=== PATIENT | female | born 1955 | race Caucasian/White ===

== ENCOUNTER 2024-06-16 05:31 | Observation (INO) ==
--- NOTE | 2024-05-07 10:47 | PAT Medication Instructions ---
Medication Instructions Date of Service May 07, 2024 Home Medications hydrochlorothiazide 25 mg tablet 25 mg PO QAM lisinopril 5 mg tablet 5 mg PO QAM cvkitzc-fyvngpnvx-gqcw tablet 3 tab PO DAILY multivitamin 0.5 tab PO DAILY DO NOT take the morning of surgery hydrochlorothiazide 25 mg tablet 25 mg PO QAM lisinopril 5 mg tablet 5 mg PO QAM vlusikl-vqxhuemua-qlzt tablet 3 tab PO DAILY multivitamin 0.5 tab PO DAILY MORNING OF SURGERY: NOTHING TO EAT OR DRINK AFTER MIDNIGHT Other Notes If you have any questions please call us at [phone] or [phone] or [phone] or [phone]
--- NOTE | 2024-05-22 11:19 | Anesthesiology Consultation ---
Date of Service May 22, 2024 Assessment & Plan (1) Encounter for pre-operative examination: - Infectious disease screening: Per assessment on 05/22/24- No known recent infectious disease contacts or current infectious disease symptoms. - Outpatient joint assessment: Pt currently scheduled for inpatient pathway. If surgeon requests review for outpatient joint pathway, patient is an acceptable candidate for outpatient joint program from anesthesia standpoint pending surgeon's office assessment that patient is motivated, has good support and completes [facility] Day Joint Program preop requirements. Chart Review Chart Review: Acceptable Risk for Surgery and Patient seen in Pre Admission Testing Teaching & Discussion Pre-Anesthesia Teaching/Discussion Notes: Instructed NPO after midnight before surgery,except medications with 15 cc of water. Medication instructions provided according to the PAT guidelines. History Surgery Operation Date: 06/16/24 12:00 Proposed Procedures p Left Anterior Total Hip Arthroplasty - Darrell Vega, Height/Weight Height: 5 ft 2 in Weight: 76.6 kg Allergies Allergy/AdvReac Type Severity Reaction Status Date / Time codeine Allergy Severe Nausea, Verified 05/22/24 11:26 dizziness benzonatate Allergy Unknown Unknown Verified 05/22/24 10:08 oxycodone Allergy Unknown Severe Verified 05/22/24 11:26 acid reflux, pain down arm, N/V alendronate sodium AdvReac Unknown "Didn't do Verified 05/22/24 10:08 [From Fosamax] well on it" ondansetron AdvReac Unknown "Made me Verified 05/22/24 10:08 more sick" Medications Home Medications Medication Instructions Recorded Confirmed Last Taken hydrochlorothiazide 25 mg tablet 25 mg PO QAM 09/08/23 05/19/24 Unknown lisinopril 5 mg tablet 5 mg PO QAM 09/08/23 05/19/24 Unknown vhwxyfq-irxbauytg-rvbf tablet 3 tab PO DAILY 05/06/24 05/19/24 Unknown multivitamin 0.5 tab PO DAILY 05/06/24 05/19/24 Unknown acetaminophen 650 mg 650 mg PO Q12H 05/19/24 05/19/24 Unknown tablet,extended release estradiol 0.01% (0.1 mg/gram) 1 appful vaginal 2XWK 05/19/24 05/19/24 Unknown vaginal cream ibuprofen 200 mg tablet 200 mg PO Q6H PRN Pain 05/19/24 05/19/24 Unknown varenicline tartrate 0.03 mg/spray 0.03 mg intranasal BID 05/19/24 05/19/24 Unknown metered nasal spray (Tyrvaya) Past Medical History Medical History Acid reflux Borderline high cholesterol Bulging lumbar disc Lumbar spine MRI 02/21/23 ([facility]) Compression fracture of body of thoracic vertebra Incidental finding on 02/21/23 lumbar spine MRI: "There is an old moderate inferior endplate compression fracture at T12 demonstrating 2 mm of retropulsion of the posterior inferior corner. However, no significant central canal narrowing" History of COVID-19 (01/2021) HTN (hypertension) Osteoarthritis Osteoporosis Exercise / Class Metabolic Activity II 4-5 Yardwork/Stairs/Walk up hill Past Surgical History Surgical History History of left cataract surgery History of right cataract surgery [place] teeth removed Past Anesthesia History No Hx of Anesthesia Complications and No Family Hx of Anesthesia Complications History of PONV No Hx of PONV and Hx of Motion Sickness (Situational) Social History Smoking Status: Never smoker Do You Dip or Chew Tobacco: No Hx Alcohol Use: No Hx Substance Use: No substance use type: does not use Review of Systems Patient denies chest pain, shortness of breath, dyspnea on exertion, fever, chills, cough, wheezing. Physical Exam Vital Signs BP 155/83 P 66 TEMP 97.8 SP02 97%RA RESP 16 Physical Full cervical extension range of motion. Full TMJ range of motion. TMD 3 finger breaths Mallampati Score II Dentition: intact, + caps/crowns (molars) Lungs: clear throughout to auscultation Cardiac: regular rate and rhythm, no murmurs noted Spine: normal Carotid arteries: negative bruit Extremities: no LE edema Lab Results Anesthesia Preop Results Results Anesthesia Widget: WBC 6.44 K/ul (4.8-10.8) 05/22/24 Hgb 12.1 g/dl (12.0-16.0) 05/22/24 Hct 36.1 % (37.0-47.0) L 05/22/24 Plt 273 K/uL (130-400) 05/22/24 Na 136 mmol/L (136-145) 05/22/24 K 4.2 mmol/L (3.5-5.1) 05/22/24 Cl 100 mmol/L (98-107) 05/22/24 CO2 30 mmol/L (21-32) 05/22/24 BUN 19 mg/dl (6-23) 05/22/24 Creat 0.86 mg/dl (0.6-1.2) 05/22/24 Glucose Level 97 mg/dl (70-99(Fasting)) 05/22/24 PT 10.7 Seconds (9.0-12.0) 05/22/24 PTT 28 Seconds (21-31) 05/22/24 INR 1.0 (0.9-1.1) 05/22/24 Blood Type A Positive 05/22/24 Antibody Screen NEGATIVE 05/22/24 Testing Electrocardiogram Date: 05/22/24 SB at 59bpm. "Otherwise normal ECG" Chest X-Ray Date: 05/22/24 FINDINGS: Heart size and pulmonary vasculature are normal. No effusion or consolidation. There is minimal scoliosis. IMPRESSION: No acute findings. Other Testing Lumbar spine MRI Date: 02/21/23 FINDINGS: For the purpose of the report the L5-S1 disc space will be located on axial image 11 of 15. There is an old moderate inferior endplate compression fracture at T12 demonstrating up to 30% loss of height centrally. There is 2 mm of retropulsion of the posterior inferior corner of the T12 vertebral body without significant central canal narrowing. Minimal superior endplate concavity along the right side of the L3 and L4 vertebral bodies. This is considered to be a chronic finding. No associated marrow edema to suggest an acute fracture within the lumbar spine. The visualized sacrum is intact. Paravertebral soft tissues are unremarkable. There is a vertebral body hemangioma within L1. Severe facet degenerative changes at L4-L5 and L5-S1. Moderate facet degenerative changes throughout the remaining lumbar spine. The conus terminates at the T12-L1 disc space level. Disc spaces are preserved. L1-L2: Small broad-based posterior disc bulge asymmetric to the left without significant central canal or right-sided neural foraminal narrowing. There is moderate left-sided neural foraminal narrowing due to the disc bulge. L2-L3: Small broad-based posterior disc bulge asymmetric to the left without significant central canal or right-sided neural foraminal narrowing. There is mild left-sided neural foraminal narrowing. This disc bulge abuts but does not displace the transiting left L3 nerve roots. L3-L4: Small broad-based posterior disc bulge without significant central canal narrowing. There is mild bilateral neural foraminal narrowing due to the disc bulge and facet hypertrophy. L4-L5: Small broad-based posterior disc bulge with ligamentum and facet hypertrophy. No significant central canal narrowing. There is mild bilateral neural foraminal narrowing. L5-S1: No significant central canal or neural foraminal narrowing. IMPRESSION: 1. There is an old moderate inferior endplate compression fracture at T12 demonstrating 2 mm of retropulsion of the posterior inferior corner. However, no significant central canal narrowing. 2. Minimal superior endplate concavity at L3 and L4 which is chronic. No acute fractures within the lumbar spine. 3. Degenerative changes as described above.
--- NOTE | 2024-06-12 07:32 | History & Physical Report ---
Date of Service June 12, 2024 Assessment & Plan (1) Osteoarthritis of left hip: We will proceed with a left anterior total of arthroplasty. Postoperatively, she will be started on aspirin for DVT prophylaxis and kept overnight in the hospital for postop medical management. She plans to use [facility] hysical therapy for discharge. History of Present Illness Chief Complaint: Osteoarthritis of the left hip. Primary Care Provider: Sher Bridges MD Renu is a pleasant 68-year-old female who has been dealing with chronic increasing left hip and groin pain. X-rays and clinical examination have been diagnostic for advanced arthritis of the left hip. After failed conservative treatment, she has elected to proceed with a left anterior total of arthroplasty.. Allergies Allergy/AdvReac Type Severity Reaction Status Date / Time codeine Allergy Severe Nausea, Verified 05/22/24 11:26 dizziness benzonatate Allergy Unknown Unknown Verified 05/22/24 10:08 oxycodone Allergy Unknown Severe Verified 05/22/24 11:26 acid reflux, pain down arm, N/V alendronate sodium AdvReac Unknown "Didn't do Verified 05/22/24 10:08 [From Fosamax] well on it" ondansetron AdvReac Unknown "Made me Verified 05/22/24 10:08 more sick" Home Medications Medication Instructions Recorded Confirmed Type hydrochlorothiazide 25 mg tablet 25 mg PO QAM 09/08/23 05/19/24 History lisinopril 5 mg tablet 5 mg PO QAM 09/08/23 05/19/24 History dvohogi-ftxnizmrm-njox tablet 3 tab PO DAILY 05/06/24 05/19/24 History multivitamin 0.5 tab PO DAILY 05/06/24 05/19/24 History acetaminophen 650 mg 650 mg PO Q12H 05/19/24 05/19/24 History tablet,extended release estradiol 0.01% (0.1 mg/gram) 1 appful vaginal 2XWK 05/19/24 05/19/24 History vaginal cream ibuprofen 200 mg tablet 200 mg PO Q6H PRN Pain 05/19/24 05/19/24 History varenicline tartrate 0.03 mg/spray 0.03 mg intranasal BID 05/19/24 05/19/24 History metered nasal spray (Tyrvaya) Past Med/Surg History Problem List (Updated 06/12/24 @ 07:32 by Darrell Vega DO) Osteoarthritis of left hip Encounter for pre-operative examination Medical History History of COVID-19 (01/2021) Bulging lumbar disc Lumbar spine MRI 02/21/23 ([facility]) Compression fracture of body of thoracic vertebra Incidental finding on 02/21/23 lumbar spine MRI: "There is an old moderate inferior endplate compression fracture at T12 demonstrating 2 mm of retropulsion of the posterior inferior corner. However, no significant central canal narrowing" Osteoarthritis Osteoporosis Acid reflux Borderline high cholesterol HTN (hypertension) Surgical History [place] teeth removed History of left cataract surgery History of right cataract surgery Social History Smoking Status: Never smoker Second Hand Exposure: No; Do You Dip or Chew Tobacco: No; Tobacco Cessation Education Requested by Patient: No Hx Alcohol Use: No Hx Substance Use: No Preferred Language: Romanian Communication Ability: Effective Stitchdown Toe Former Required: No Beliefs That Will Affect Care: None Current Living Situation: Spouse Feels Safe at Home: Yes Safety Concerns: Feels Safe At This Time Assistive Devices: Glasses Review of Systems All systems reviewed & are unremarkable except as noted in HPI & below. Physical Exam On physical examination of the left hip, she has decreased range of motion. She has pain with internal/external rotation. All of her pain is located in the groin. Constitutional WD/WN, vitals as above Eyes PERRL, conjunctivae normal, anicteric sclerae ENMT external ear and nose normal, oropharynx normal Neck trachea midline, no thyromegaly Respiratory normal respiratory effort Cardiovascular RRR, no murmur, no edema Gastrointestinal (Abdomen) normal bowel sounds, soft, nontender, no hepatosplenomegaly Psychiatric A+Ox3, euthymic affect Results & Data Results & Data Laboratory Results . Diagnostic Findings X-rays of the left hip show advanced osteoarthritis with joint space narrowing, osteophyte formation, and [id number] tubulation.. PG Care Time/CCT Total # of Minutes Spent Total Time Spent with Patient: Total time spent is greater than 50% in coordination of care (as documented) at patient's floor/unit and/or counseling patient: Coding Level of Care Code None Diagnoses Osteoarthritis of left hip M16.12
--- OUTSIDE RECORDS SUMMARY | 2024-06-16 05:37 | External Medical Summary | Summary of Care ---
Author Name Unknown Organization [facility] Address [address] [place] [address] Phone [phone] Care Team Providers Care Cashier Wrapper Name Role Phone hSer Bridges MD Primary Care Provider + Reason for Visit * Reason Comments pre-op exam Encounter Details Date Type Department Care Team (Late st Contact Info) Description 05/30/2024 10:00 AM EDT Office Visit General Internal Medicine [facility] [address] [facility] [address] Sher Bridges MD [address] [place] [address] Hip pain, left*; HTN, goal below 130/80 Allergies Active Allergy Reactions Criticality Noted Date Comments Codeine Nausea/vomiting 11/03/1999 Acid reflux, N/V Ondansetron 03/12/2020 Other reaction(s): dizziness Oxycodone 03/12/2020 Other reaction(s): nausea Benzonatate 08/26/2021 flushing documented as of this encounter (statuses as of 05/30/2024) Medications Multiple Vitamins-Big Arm als (MULTIVITAMIN ADULT) TABS Active Citracal Maximum Plus Oral Tablet Take by mouth. Act mandy Lutein-Zeaxant hin 25-5 MG Oral Capsule Take by mouth. Ac tive Lisinopril 5 MG Oral Tablet (Prinivil)Cindi cations:HTN, goal below 130/80 Take 1 Tablet by mouth in the morning. 90 Tablet 3 4 Active Alendronate Sodium 70 MG Oral Tablet (Fosamax) Take 1 Tablet by mouth once a week. 4 Tablet 12 4 Active Estradiol 0.1 MG/GM Vaginal Cream (Estrace) Apply pea sized amount (0.5 gm) vaginally at bedtime twice a week. 42.5 g 3 4 Active hydroCHLOROthi azide 25 MG Oral Tablet (Hydrodiuril)I ndications:HTN , goal below 130/80 TAKE ONE TABLET BY MOUTH EVERY MORNING 90 Tablet 1 5 Active Tyrvaya 0.03 MG/ACT Nasal Solution (Varenicline Tartrate) Administer into nostril. Active [place] 3 1200 MG Oral Capsule Take 2,400 mg by mouth. Takes 1x a day 05/31/19 25 Discontinu ed(Medicat ion List Clean Up) documented as of this encounter (statuses as of 05/30/2024) Active Problems Problem Noted Date Diagnosed Date Senile osteoporosis 12/05/2023 History of compression fracture of spine 024 Lumbar radiculopathy 03/13/2023 Hx of actinic keratosis 10/20/2022 Gastroesophageal reflux disease without esophagi tis 08/04/2021 HTN, goal below 130/80 01/12/2021 High risk for fracture due to osteoporosis by DE XA scan 08/19/2020 Hx of nonmelanoma skin cancer 08/22/2018 Overview (08/22/2018): BCC L upper arm 12/2017 documented as of this encounter (statuses as of 05/30/2024) Resolved Problems Problem Noted Date Diagnosed Date Resolved Date Essential hypertension with goal blood pressure less than 140/90 03/12/2020 01/12/2021 Closed fracture of right proximal humerus 03/12/2020 08/04/2021 Closed displaced fracture of greater tuberosity of right humerus 03/12/2020 08/04/2021 SENSORINEURAL HEARING LOSS, L>R 03/28/2010 04/03/2023 Chronic otitis externa 11/23/200903/12 Other specified forms of hearing loss 11/23/2009 03/12/2020 Primary snoring 11/23/2009 04/03/2023 Chronic rhinitis 11/23/2009 04/03/2023 Deviated nasal septum 11/23/20092020 Temporomandibular joint diso rders, unspecified 11/23/2009 03/12/2020 Overview (05/07/2024): ICD-10 Update of Inactive Term Subjective tinnitus 11/23/2009 04/03/19 24 Other psychological or physi siobhan stress, not elsewhere classified 11/23/2009 03/12/2020 documented as of this encounter (statuses as of 05/30/2024) Immunizations Name Administration Dates Next Due COVID-19 mRNA, LNP-s, No Pre serve, 2-Dose Series (Moderna) 04/13/2020,03/11/2020 COVID-19, mRNA, LNP-s, PF, B ooster, 100mcg/0.5mg (Moderna) 10/27/2022,06/03/2021,12/13/2020 COVID-19, mRNA, LNR-S, Bival ent, PF, 10mcg/0.2 ml (Moderna) 6m to 5 years 11/22/2021 Pneumococcal Conjugate Vacci ne, 20-valent ([id number]) 09/07/2022 Pneumococcal Polysaccharide PPV23 (Pneumovax) 07/13/2020 SARS-COV-2 (COVID-19) Vaccin e Unspecified 12/06/2023 Season Influenza, Quad, PF, Adjuvanted, 65+ Yrs, IM (FLUAD) 11/16/2020 Seasonal Influenza Virus Vac cine, Unspecified Formulation 12/14/2023,10/06/2022,11/16/2020,12/05,01/26/2000 Seasonal Influenza, High Dos e, Trivalent, PF, IM (Fluzone HD) 11/12/2021 Seasonal Influenza, PF, 6 M & above, IM , (FluLaval or Fluzone) 12/05/2018 TD - Tetanus/Diptheria (ADULT) 08/25/2020 TDAP (age 10 and older)(Boostrix) 08/25/2020 TDAP, Age 7 and older, IM (Adacel) 09/13/2009 Zoster Vaccine Recombinant (Shingrix) 12/19/2021 ,10/08/2021 documented as of this encounter Social History Tobacco Use Types Packs/Day Years Used Date Smoking Tobacco: Never Smokeless Tobacco: Never Alcohol Use Standard Drinks/Week Comments No 0 (1 standard drink = 0.6 oz pur e alcohol) PHQ-2 Answer Date Recorded PHQ Adult Total Score 0 10/25/2023 Hunger Vital Sign Answer Date Recorded Within the past 12 months, y ou worried that your food would run out before you got the money to buy more. Never true 04/22/19 23 Within the past 12 months, t he food you bought just didn't last and you didn't have money to get more. 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 Not on file Not on fi le Not on file documented as of this encounter Last Filed Vital Signs Vital Sign Reading Time Taken Comments Blood Pressure 124/86 05/30/2024 10:02 AM EDT Pulse 82 05/30/2024 10:02 AM EDT Temperature 37.2 °C (99 °F) 05/30/2024 10: 02 AM EDT Respiratory Rate - - Oxygen Saturation 98% 05/30/2024 10: 02 AM EDT Inhaled Oxygen Concentration - - Weight 75.7 kg (166 lb 14.4 oz) 025 10:02 AM EDT Height 160 cm (5' 3") 05/30/2024 10:02 AM EDT Body Mass Index 29.57 05/30/2024 10:02 AM EDT documented in this encounter Progress Notes * Sher Bridges MD - 05/30/2024 10:20 AM EDT Chief Complaint Patient presents with pre-op exam SUBJECTIVE: Renu Hernandez is a 68 year old female with PMH as below who presents for what was to be pre-op forleft hip replacement, but saw new surgeon (Gary) and is having left hip replacement 06/16/24 and he is not asking for pre-op. Had pre-op assessment at [facility], saw some labs flagged, asking if anemic.No cp, sob, giraldo. Occasional palpitations when gets stressed, chronic, not exertional, was able to exercise w/o palpitations, sob ,giraldo until early April when hip pain limited her, still does weights and adls w/o issue Patient Active Problem List Diagnosis Hx of nonmelanoma skin cancer High risk for fracture due to osteoporosis by DEXA scan HTN, goal below 130/80 Gastroesophageal reflux disease without esophagitis Hx of actinic keratosis History of compression fracture of spine Senile osteoporosis Lumbar radiculopathy Current Outpatient Medications Medication Sig Dispense Refill Multiple Vitamins-Minerals (MULTIVITAMIN ADULT) TABS Citracal Maximum Plus Oral Tablet Take by mouth. Lutein-Zeaxanthin 25-5 MG Oral Capsule Take by mouth. Lisinopril 5 MG Oral Tablet (Prinivil) Take 1 Tablet by mouth in the morning. 90 Tablet 3 Alendronate Sodium 70 MG Oral Tablet (Fosamax) Take 1 Tablet by mouth once a week. 4 Tablet 12 Estradiol 0.1 MG/GM Vaginal Cream (Estrace) Apply pea sized amount (0.5 gm) vaginally at bedtime twice a week. 42.5 g 3 hydroCHLOROthiazide 25 MG Oral Tablet (Hydrodiuril) TAKE ONE TABLET BY MOUTH EVERY MORNING 90 Tablet 1 Tyrvaya 0.03 MG/ACT Nasal Solution (Varenicline Tartrate) Administer into nostril. No current facility-administered medications for this visit. Review of patient's allergies indicates: Allergen Reactions Codeine Nausea/vomiting Acid reflux, N/V Ondansetron Other reaction(s): dizziness Oxycodone Other reaction(s): nausea Tessalon [Benzonatate] flushing Health Maintenance Due Topic Date Due Adult Wellness Visit Never done ROS: CONSTITUTIONAL: No change in weight, No weakness, and No fevers, sweats, or chills PULMONARY: No cough, sputum, or hemoptysis, No wheezing, No rales, No shortness of breath, and No recent change in breathing CARDIOVASCULAR: No chest pain, No shortness of breath, No dyspnea on exertion, No orthopnea, No paroxysmal nocturnal dyspnea, No edema, and No syncope ALL OTHER SYSTEMS NEGATIVE I reviewed social, PMH, PSH, and family history and updated where needed. Social History Socioeconomic History Marital status: Spouse name: Not on file Number of children: 2 Years of education: Not on file Highest education level: Not on file Occupational History Occupation: Housewife - retired - mechanic helper Tobacco Use Smoking status: Never Smokeless tobacco: Never Vaping Use Vaping status: Never Used Substance and Sexual Activity Alcohol use: No Drug use: Never Sexual activity: Yes Partners: Male Other Topics Concern Service Not Asked Blood Transfusions Not Asked Caffeine Concern Not Asked Occupational Exposure Not Asked Hobby Hazards Not Asked Sleep Concern Not Asked Stress Concern Not Asked Weight Concern Not Asked Special Diet Not Asked Back Care Not Asked Exercise Not Asked Bike Helmet Not Asked Seat Belt Not Asked Self-Exams No Comment: breast Social History Narrative Not on file Social Needs Financial Resource Strain: Not on file Food Insecurity: No Food Insecurity (04/21/2022) Hunger Vital Sign Worried About Running Out of Food in the Last Year: Never true Ran Out of Food in the Last Year: Never true Transportation Needs: Not on file Social Connections: Not on file Housing Stability: Not on file Past Medical History: Diagnosis Date Chronic otitis externa 11/23/2009 Chronic rhinitis Closed fracture of right proximal humerus 03/12/2020 Deviated nasal septum 11/23/2009 Gastroesophageal reflux disease without esophagitis 08/04/2021 High risk for fracture due to osteoporosis by DEXA scan 08/19/2020 Liver hemangioma Other specified forms of hearing loss 11/23/2009 Temporomandibular joint disorders, unspecified 11/23/2009 No past surgical history on file. Family History Problem Relation Name Age of Onset Endocrine Disorder Mother osteoporosis Hypertension Mother Neurological Disorder Father age 73 - ALS Arthritis Brother back arthritis, fracture Hypertension Brother age 50 Anxiety Disorder Brother Endocrine Disorder Grandmother (Maternal) osteoporosis Neurological Disorder Grandfather (Paternal) Amyotrophic Lateral sclerosis Other (Other) Other no breast/ovarian/colon cancer No Known Problems Daughter No Known Problems Son OBJECTIVE: PHYSICAL EXAM: BP 124/86 | Pulse 82 | Temp 99 °F (37.2 °C) | Ht 5' 3" (1.6 m) | Wt 166 lb 14.4 oz (75.7 kg) | LMP 08/15/2003 | SpO2 98% | BMI 29.57 kg/m² | BSA 1.83 m² General: alert, healthy, and no distress Head: Normocephalic, No masses, lesions, or abnormalities Eye Exam: conjunctiva are pink and non-injected, sclera clear Ears: External ears normal, Canals clear, TM's Normal Heart: regular rate & rhythm, no murmur, no gallops, PMI non-displaced, S-1 normal, and S-2 normal Lungs: normal respiratory rate and rhythm, lungs clear to auscultation Psych: normal affect, no flight of ideas or tangential thought, good eye contact, no pressured speech I reviewed last cbc, gfr, 05/22/24 EKG: Sinus bradycardia Otherwise normal ECG When compared with ECG of 24-Aug-2021 03:09, Premature ventricular complexes are no longer Present Cxr: IMPRESSION: No acute findings. 05/13/24 preop: Infectious disease screening: Per assessment on 05/22/24- No known recent infectious disease contacts or current infectious disease symptoms. - Outpatient joint assessment: Pt currently scheduled for inpatient pathway. If surgeon requests review for outpatient joint pathway, patient is an acceptable candidate for outpatient joint program from anesthesia standpoint pending surgeon's office assessment that patient is motivated, has good support and completes [facility] Day Joint Program preop requirements. I reviewed cbc, gfr ASSESSMENT: (M25.552) Hip pain, left (primary encounter diagnosis) (I10) HTN, goal below 130/80 PLAN: Hip pain, left (Primary) Await surgery for chronic pain Discussed labs, hgb normal - may repeat after surgery to trend HTN, goal below 130/80 Cont lisinopril, hctz Follow Up: Return if symptoms worsen or fail to improve and as scheduled.. Sher Bridges MD documented in this encounter Nursing Notes * Mere Heath CCMA - 05/30/2024 10:01 AM EDT Pt is here for pre op exam pt is doing well pt has questions about some lab work and the pre op also BP documented in this encounter Plan of Treatment Upcoming Encounters Date Type Department Care Team (Late st Contact Info) Description 07/16/2024 10:20 AM EDT Office Visit General Internal Medicine [facility] [address] [facility] [place] [address] Sher Bridges MD [address] [facility] [place] [address] 07/18/2024 1:30 PM EDT Office Visit Dermatology [facility] [address] [facility] [place] [address] Sher Berrios MD [address] [facility] [place] [address] 12/05/2024 10:40 AM EDT Office Visit Rheumatology [facility] [address] [place] [phone] Darrell Jones MD [address] [place] [id number] Health Maintenance Due Date Last Done Comments Colonoscopy 06/21/1999 Sigmoidoscopy 06/21/1999 Fecal Occult Blood Test 11/15/2001 11/15/2000 Adult Wellness Visit 2020 COVID-19 Vaccine ( season) 2024 12/06/2023, 10/27/2022, 11/22/2021, Additional history exists Mammogram 06/17/2024 06/18/2023, 08/05, 08/18/2020, Additional history exists GFR 10/05/2024 10/06/2023, 0406/2023, 09/04/2022, Additional history exists Depression Screening 10/24/2024 10/25/2023 DXA Scan 08/13/2025 08/14/2023, 08/05, 11/03/2008, Additional history exists Albumin/Creatinine Ratio 09/04/2025 09/04/2022, 07/06 Diabetes Screening 10/05/2026 10/06/2023, 0 05/11/2023, 09/04/2022, Additional history exists Cologuard 12/04/2026 12/05/2023, 11/06, 11/28/2023, Additional history exists Colorectal Cancer Screening 12/04/2026 Lipid Panel 10/05/2028 10/06/2023, 08/07, 08/05/2021, Additional history exists DTap/Tdap Vaccines (4 - Td or Tdap) 08/25/2030 08/25/2020, 08/25/2020, 09/13/2009 Zoster Vaccines Completed 12/19/2021, 10/08/2021 Pneumococcal Vaccine: 50+ Years Completed 09/07/2022, 07/13/2020 VITAMIN D LEVEL ONCE IN A LIFETIME-USE SMARTSET# [id number] Completed 10/06/2023, 01/14/2021, 09/06/2020, Additional history exists Influenza Vaccine (FLU shot) Completed 09/2023, 10/06/2022, 11/12/2021, Additional history exists HPV (Gardasil) Vaccine Aged Out No lo nger eligible based on patient's age to complete this topic Hepatitis B Vaccine Aged Out No longe r eligible based on patient's age to complete this topic MENINGOCOCCAL (MENACTRA/MENVEO) Aged Out No longer eligible based on patient's age to complete this topic Meningitis B Vaccine (Bexsero/Trumemba) Aged Out No longer eligible based on patient's age to complete this topic documented as of this encounter Medical Devices Not on filedocumented as of this encounter Visit Diagnoses Diagnosis Hip pain, left- Primary Pain in joint, pelvic region and thigh HTN, goal below 130/80 Unspecified essential hypertension documented in this encounter Care Teams Cashier Wrapper Relationship Specialty Start Date End Date Sher Bridges MD [address] [place] [address] PCP - General Internal Medicine 03/12/20 documented as of this encounter
[2024-06-16] MEDS: LR 500ML BOLUS, THEN 15ML/HR IV SCH (06:05)
[2024-06-16] MEDS: ACETAMINOPHEN 500 MG TAB PO SCH ×2 (06:06→14:37)
[2024-06-16] MEDS: FAMOTIDINE 20 MG TAB PO SCH (06:07)
[2024-06-16] MEDS: GABAPENTIN 300 MG CAP PO SCH (06:07)
[2024-06-16] MEDS ORDERED: MIDAZOLAM HCL 1 MG/ML 2ML VIAL ONE ×2 (06:11→06:34)
[2024-06-16] MEDS ORDERED: fentaNYL citrate PF 100 MCG/2 ML VIAL ONE (06:11)
[2024-06-16] MEDS ORDERED: BUPIVACAINE 0.5 % 5 MG/1 ML PF 10ML VIAL ONE (06:25)
[2024-06-16] MEDS: dexAMETHasone**PF** 10 MG/ML VIAL IV SCH (06:31)
[2024-06-16] MEDS ORDERED: ATROPINE SULFATE 0.1 MG/ML 10ML SYR IV PRN (06:36)
[2024-06-16] MEDS ORDERED: ePHEDrine sulfate 50 MG/ML AMP IV PRN (06:36)
[2024-06-16] MEDS ORDERED: ONDANSETRON INJ 2 MG/ML 2 ML VIAL IV PRN ×2 (06:36→09:56)
[2024-06-16] MEDS ORDERED: fentaNYL citrate PF 100 MCG/2 ML VIAL IV PRN (06:36)
[2024-06-16] MEDS ORDERED: PROPOFOL IV EMULSION 10 MG/ML 20 ML VIAL IV ONE (06:39)
--- NOTE | 2024-06-16 06:40 | History & Physical Bridge Note ---
Date of Service June 16, 2024 History & Physical Bridge Note I have examined the patient, reviewed the History & Physical and in the interval since the performance of the History & Physical I have noted the following changes of clinical significance: no changes noted
[2024-06-16] MEDS: TRANEXAMIC ACID 1,000 MG **IV Pre-op IV SCH (06:45)
[2024-06-16] MEDS: ceFAZolin 2000MG 2,000 MG/15 ML SYR IV SCH (06:58)
[2024-06-16] MEDS ORDERED: ePHEDrine sulfate 50 MG/5 ML SYR ONE (07:24)
[2024-06-16] MEDS: ROPIV 0.5% 246mg, Ketorolac 30mg, EPINEPHrine 0.5mg in NSS INFIL SCH (07:32)
[2024-06-16] MEDS: ORTHO JOINT ANESTHETIC ONE (07:33)
[2024-06-16] MEDS: TRANEXAMIC ACID 1,000 MG **IV Intra-op IV SCH (08:00)
--- NOTE | 2024-06-16 08:05 | Operative Report ---
PG Post Operative Report Pre & Post Diagnosis Operation Date: 06/16/24 07:00 Pre-Op Diagnosis: Left Hip Degenerative Joint Disease Post-Op Diagnosis: Left Hip Degenerative Joint Disease I identified the patient and participated in the time-out.: Yes Procedure Operation Date: 06/16/24 07:00 Actual Procedures p Left Anterior Total Hip Arthroplasty, Uncemented(Left) - Darrell Vega DO Surgeon Darrell Vega DO Trust Mail Clerk Milan Henriquez PA-C Estimated Blood Loss 150 Findings Consistent with Post-Op Diagnosis Specimens Left femoral head Description of Procedure Implants used I used a ZimmerBiomet total hip arthroplasty system with a size 3 standard offset Z1 stem, a 46 mm G7 cup with a 25mm screw, an E1 polyethylene liner, a 32 mm ceramic head with a +7 neck. Renu arrived at the hospital for the above procedure. She was seen in the preoperative holding area and the operative extremity was identified and signed. She was given a spinal anesthetic, a preoperative antibiotic, and TXA. She was then taken back to the operating room and laid on the table in the supine position. She was given basic sedation. The operative leg was secured to a Puristst leg positioner. The hip was then prepped and draped in sterile fashion. A timeout was done and the patient and the operative extremity was properly identified. An anterior approach was used. Dissection was taken down through the fascia and the tensor muscle belly was retracted laterally and the rectus was retracted medially. The circumflex vessels were identified and ligated. The capsule was then incised and tagged for later repair. The femoral neck was then cut and the femoral head was removed. The acetabulum was exposed. Time was spent doing a complete circumferential labral release. Sequential reaming of the acetabulum up to a size 45 reamer was done. Final reamings were done under fluoroscopy to ensure appropriate version. A Biomet 46 mm G7 cup was then impacted into place. A single 25 mm screw was placed. The E1 polyethylene liner was then snapped into place. Surrounding soft tissues were then injected with 100 cc of an orth opedic pain control cocktail. The proximal femur was then exposed. Sequential broaching up to a size 3 broach was done. Off that broach a size 32 head with a +7 neck was trialed. The hip was reduced and fluoroscopic images showed anatomic alignment of the implants in acceptable length. The broach was removed. The final size 3 standard offset Z1 stem was then impacted into place. A ceramic 32 mm head with a +7 neck was then impacted onto the stem and the hip was reduced. Final fluoroscopic images showed anatomic alignment of the hip. The capsule was then closed with #1 Vicryl suture. A dilute betadyne lavage was then done for 3 minutes. The joint was then irrigated with normal saline solution. The fascia was closed with #1 PDS suture. Skin was closed with 2-0 Vicryl, uzma, and a Silverlon dressing. She was then transferred to a hospital bed and taken to the post anesthesia care unit in stable condition. She tolerated the procedure well. Milan Henriquez PA-C, was present for the entire procedure. He was critical for patient positioning, prepping, draping, retraction exposure, wound closure and application of sterile dressing. I attest to the content of the Intraoperative Record and any orders documented therein. Any exceptions are noted below.
--- NOTE | 2024-06-16 08:58 | XRay Report ---
XR hip 1V LT w pelvis CLINICAL HISTORY: IN PACU - Post Surgical COMPARISON: 03/18/2024 FINDINGS: Left hip osteosynthesis shows no hardware complication. There is expected soft tissue gas. Skin uzma are present. IMPRESSION: Unremarkable postoperative exam. ACT 112: Negative or not required by law. Electronically signed by: Ted Burrell M.D. 06/16/2024 8:56 AM
--- NOTE | 2024-06-16 09:00 | Fluoroscopy Report ---
FL hip LT 1V CLINICAL HISTORY: LEFT ANTERIOR MERY COMPARISON STUDY: 03/18/2024 FLUOROSCOPY TIME: 15 seconds FLUOROSCOPY IMAGES: 2 EXPOSURE DOSE: 1.4 mGy FINDINGS: Fluoroscopy was provided for left hip prosthesis. IMPRESSION: Intraoperative fluoroscopy. ACT 112: Negative or not required by law. Electronically signed by: Ted Burrell M.D. 06/16/2024 8:59 AM
[2024-06-16] MEDS ORDERED: MAGNESIUM HYDROXIDE SUSP 30 ML UDC PO PRN (09:56)
[2024-06-16] MEDS ORDERED: bisacodyL 10 MG SUPP PR PRN (09:56)
[2024-06-16] MEDS ORDERED: HYDROmorphone INJ 0.5 MG/0.5 ML SYR IV PRN (09:56)
[2024-06-16] MEDS ORDERED: NALOXONE HCL 0.4 MG/1 ML VIAL/CARP IV PRN (09:56)
--- NOTE | 2024-06-16 11:14 | Anesthesiology Progress Note ---
Date of Service June 16, 2024 Anesthesia Post Procedure Vital Signs Vital Signs: Temp Pulse Pulse Resp BP Pulse Ox O2 Del Method 06/16/24 10:53 78 16 125/78 98 Room Air 06/16/24 10:20 97.5 F L 62 16 115/71 98 Room Air 06/16/24 09:52 97.5 F L 65 18 125/73 100 Room Air 06/16/24 09:35 97.3 F L 79 20 113/63 99 Room Air 06/16/24 09:20 60 18 129/80 97 Room Air 06/16/24 09:05 97.2 F L 69 19 126/74 97 Room Air 06/16/24 08:55 77 20 117/72 95 Room Air 06/16/24 08:45 72 15 116/65 95 Room Air 06/16/24 08:35 73 18 127/65 100 Oxymask 06/16/24 08:28 97.0 F L 80 16 111/71 100 Oxymask 06/16/24 05:44 98.2 F 72 18 168/87 H 98 Room Air O2 Flow Rate 06/16/24 10:53 06/16/24 10:20 06/16/24 09:52 06/16/24 09:35 06/16/24 09:20 06/16/24 09:05 06/16/24 08:55 06/16/24 08:45 06/16/24 08:35 9 06/16/24 08:28 9 06/16/24 05:44 Transfer of Care Handoff Completed per policy Notes Mental Status: alert / awake / arousable and participated in evaluation Patient Amnestic to Procedure: Yes Nausea / Vomiting: adequately controlled Pain: adequately controlled Airway Patency, RR, SpO2: stable & adequate BP & HR: stable & adequate Hydration State: stable & adequate Neuraxial Anesthesia: was administered and sensory block is resolving Anesthetic Complications: no major complications apparent and Pt Satisfied with anesthetic care
[2024-06-16] MEDS: LR 60ML/HR IV SCH (11:27)
[2024-06-16] MEDS: PROMETHAZINE HCL INJ 25 MG/ML 1 ML VIAL ONE (11:28)
[2024-06-16] MEDS: hydroCHLOROthiazide 25 MG TAB PO SCH (11:29)
[2024-06-16] MEDS: MULTIVITAMIN TAB PO SCH (11:29)
[2024-06-16] MEDS: ASPIRIN 81 MG ECTAB PO SCH (11:29)
[2024-06-16] MEDS: lisinopril 5 MG TAB PO SCH (11:30)
[2024-06-16] MEDS: KETOROLAC TROMETHAMINE 15 MG/ML VIAL IV SCH (11:32)
[2024-06-16] MEDS: SODIUM CHLORIDE 0.9% 1,000 ML IV SCH (11:32)
[2024-06-16] MEDS: DOCUSATE SODIUM 100 MG CAP PO SCH (11:32)
[2024-06-16] MEDS: ceFAZolin 1000MG 1,000 MG/7.5 ML SYR IV SCH (14:38)
[2024-06-16] MEDS: SENNA 8.6 MG TAB PO SCH (20:06)
[2024-06-16] MEDS: traMADol HCL 50 MG TABLET PO PRN (23:29)
[2024-06-17] MEDS: METOCLOPRAMIDE HCL INJ 5 MG/ML 2 ML VIAL IV PRN (07:53)
[2024-06-17] MEDS: dexAMETHasone 4 MG TAB PO SCH (10:53)
--- NOTE | 2024-06-17 12:58 | Orthopedic Progress Note ---
Date of Service June 17, 2024 Assessment & Plan (1) Status post left hip replacement: Assessment: Status post left anterior total hip arthroplasty. Plan: Overall, other than nausea she is doing quite well today with her left hip. She will work with physical therapy later this morning to work on ambulation range of motion exercises once she is feeling a little bit better from her nauseous is due to experiencing this morning. She was started on aspirin for DVT prophylaxis. She can be discharged home later this morning pending formal physical therapy evaluation recommendation. This will also depend on if she is feeling better after the nausea and vomiting she has been experiencing this morning. Discharge medications and instructions were discussed with her with clear understanding. She will follow-up with orthopedics in 2 to 3 weeks postdischarge for continued postoperative management or sooner if needed. Subjective . Renu was seen this morning resting comfortably with no acute distress. She unfortunately has been nauseous all morning. She notes that it started around 7:00 this morning. She notes that she has been up and out of bed with no significant issues yesterday but has yet to be out this morning. She is yet to work physical therapy this morning. She denies any concerns with her surgical incision site. She denies any active bleeding, discharge, or signs infection. She denies any other concerns today. Review of Systems All systems reviewed & are unremarkable except as noted in HPI & below. Physical Exam . On physical examination of the left hip, the dressing is in place, clean, dry, intact no signs of active bleeding, discharge, or signs of infection. Her leg is out in full extension. Limited range of motion strength secondary to postoperative stiffness and soreness. Calf soft nontender to palpation. Negative Homans' sign. Intact plantarflexion dorsiflexion of left ankle. +2 DP and PT pulse. Less than 2-second capillary refill. Normal sensation. Neurovascular intact. Results & Data Results & Data Laboratory Results . Diagnostic Findings . Hip X-Ray 06/16/24 00:00 FL hip LT 1V CLINICAL HISTORY: LEFT ANTERIOR MERY COMPARISON STUDY: 03/18/2024 FLUOROSCOPY TIME: 15 seconds FLUOROSCOPY IMAGES: 2 EXPOSURE DOSE: 1.4 mGy FINDINGS: Fluoroscopy was provided for left hip prosthesis. IMPRESSION: Intraoperative fluoroscopy. ACT 112: Negative or not required by law. Electronically signed by: Ted Burrell M.D. 06/16/2024 8:59 AM Hip/Pelvis X-Ray 06/16/24 08:30 XR hip 1V LT w pelvis CLINICAL HISTORY: IN PACU - Post Surgical COMPARISON: 03/18/2024 FINDINGS: Left hip osteosynthesis shows no hardware complication. There is expected soft tissue gas. Skin uzma are present. IMPRESSION: Unremarkable postoperative exam. ACT 112: Negative or not required by law. Electronically signed by: Ted Burrell M.D. 06/16/2024 8:56 AM PG Care Time/CCT Total # of Minutes Spent Total Time Spent with Patient: Total time spent is greater than 50% in coordination of care (as documented) at patient's floor/unit and/or counseling patient: Coding Level of Care Code 19336 Post Operative Follow-Up Diagnoses Status post left hip replacement Z96.642
[2024-06-17] MEDS: PROMETHAZINE HCL 25 MG TAB PO ONE (13:29)
[2024-06-17] MEDS: SODIUM CHLORIDE 0.9% 1,000 ML IV ONE (15:13)
[2024-06-17 15:39] LABS: Hematocrit (blood only) 31.2 % (37.0-47.0); Hemoglobin 10.6 g/dl (12.0-16.0)
--- NOTE | 2024-06-18 10:47 | Orthopedic Progress Note ---
Date of Service June 18, 2024 Assessment & Plan (1) Status post left hip replacement: (2) Aftercare following left hip joint replacement surgery: Plan 68-year-old woman POD# 2 s/p left anterior total hip replacement, doing well overall. Pain is well-controlled. She is neurologically intact and no longer having any nausea, dizziness, or headache. Plan: 1. DVT prophylaxis w/ TEDs, SCDs, ASA 81 mg BID. 2. Continue PT/OT as tolerated. WBAT on L LE. Left anterior approach total hip precautions/protocol. 3. Pain control doing well with current pain regimen. 4. Maintain Silverlon dressing for 7 days postop. 5. Disposition - Okay for discharge from orthopedic standpoint. Home today, with home health PT to start Sunday. 6. F/u outpatient with Dr. Vega's team 2 weeks postop, as scheduled, for first post-op visit. Subjective Patient is POD# 2 s/p left anterior total hip arthroplasty by Dr. Malik on 06/16/2024. Patient says her pain is well-controlled this morning. Denies CP, SOB, L LE paresthesia. Particularly, she is no longer having any nausea or vomiting symptoms. Additionally, she feels that she has not had any dizziness or headache since yesterday. She has home health PT arranged to come to the house for therapy, which was supposed to start today, but since she needed to stay an additional night, this will begin on Sunday. Patient says that she will be ready to go home later today. Review of Systems All systems reviewed & are unremarkable except as noted in HPI & below. Physical Exam GENERAL: AA&Ox3, NAD. Pleasant, affect is calm. Lying in bed and appears comfortable. RESPIRATORY: Normal respiratory effort with no signs of distress. CHEST/AXILLA: Chest movement symmetrical. No deformities noted. CARDIOVASCULAR: No edema noted. SKIN: [place], warm and dry. MS/EXTREMITY: Hip Silverlon dressing c/d/i. SURY hose donned. [Thigh is soft, supple. Leg lengths are equal. + ankle dorsi/plantarflexion. NVI distally. Calf soft/NT. PT/DP pulses intact, 2+. Results & Data Results & Data Laboratory Results . Laboratory Results - last 24 hr 06/17/24 15:22 Hgb 10.6 L Hct 31.2 L Diagnostic Findings . PG Care Time/CCT Total # of Minutes Spent Total Time Spent with Patient: Total time spent is greater than 50% in coordination of care (as documented) at patient's floor/unit and/or counseling patient: [place]oding [place] [address] Post Operative Follow-Up Patient Type Established History Problem Focused Exam Problem Focused Medical Decision Making Straight Forward Diagnoses Status post left hip replacement Z96.642 Aftercare following left hip joint replacement surgery Z47.1; Z96.642
--- NOTE | 2024-06-18 11:46 | Discharge Summary ---
Date of Service June 18, 2024 Admission HPI (Per Admitting) Renu is a pleasant 68-year-old female who has been dealing with chronic increasing left hip and groin pain. X-rays and clinical examination have been diagnostic for advanced arthritis of the left hip. After failed conservative treatment, she has elected to proceed with a left anterior total of arthroplasty. We will proceed with a left anterior total of arthroplasty. Postoperatively, she will be started on aspirin for DVT prophylaxis and kept overnight in the hospital for postop medical management. She plans to use [facility] physical therapy for discharge. Admission Exam (Per Admitting) On physical examination of the left hip, she has decreased range of motion. She has pain with internal/external rotation. All of her pain is located in the groin. Constitutional WD/WN, vitals as above Eyes PERRL, conjunctivae normal, anicteric sclerae ENMT external ear and nose normal, oropharynx normal Neck trachea midline, no thyromegaly Respiratory normal respiratory effort Cardiovascular RRR, no murmur, no edema Gastrointestinal (Abdomen) normal bowel sounds, soft, nontender, no hepatosplenomegaly Psychiatric A+Ox3, euthymic affect Principal Diagnosis Same as "Discharge Diagnosis" noted below under Discharge Instructions. Discharge Exam GENERAL: AA&Ox3, NAD. Pleasant, affect is calm. Lying in bed and appears comfortable. RESPIRATORY: Normal respiratory effort with no signs of distress. CHEST/AXILLA: Chest movement symmetrical. No deformities noted. CARDIOVASCULAR: No edema noted. SKIN: [place], warm and dry. MS/EXTREMITY: Hip Silverlon dressing c/d/i. SURY hose donned. Thigh is soft, supple. Leg lengths are equal. + ankle dorsi/plantarflexion. NVI distally. Calf soft/NT. PT/DP pulses intact, 2+. Discharge Data Procedures Performed Operation Date: 06/16/24 07:00 Actual Procedures p Left Anterior Total Hip Arthroplasty, Uncemented(Left) - Darrell Vega DO Ordered Studies 06/16/24 FL hip LT 1V Routine Hospital Course (1) Status post left hip replacement: (2) Aftercare following left hip joint replacement surgery: Plan On June 16, 2024 Renu arrived at [facility] operating room and underwent a left anterior total hip replacement without complications. Patient had spinal anesthetia and monitored conscious sedation for the procedure. Postoperatively, patient was transferred to the general orthopedic floor in stable condition and eventually started onto aspirin 81 mg twice daily for DVT prophylaxis as appropriate. Patient's hospital course was uneventful. On postoperative day #1, patient's vital signs were stable and pain was well- controlled. Patient did unfortunately experience some significant nausea, headache, dizziness the day after surgery, so she did need to stay an additional night since she was unable to work with therapy to get cleared to go home. However, patient was eventually able to participate well with physical therapy on POD #2, safely performing the necessary ambulation and range of motion exercises and properly demonstrating ADL tasks. Patient was then discharged home in stable condition, with [facility] PT services to begin. Patient will follow-up with orthopedics in 2 to 3 weeks for postoperative care. PG Care Time/CCT Total # of Minutes Spent Total Time Spent with Patient: Total time spent is greater than 50% in coordination of care (as documented) at patient's floor/unit and/or counseling patient: Discharge Plan Discharge Items Patient Disposition: Home - Home Health Services Reason For Visit: Left Hip Degenerative Joint Disease Discharge Diagnosis: Same Activity: Per Instructions section Non-emergency contact: Surgeon Call non-emergency contact if: your temperature is above 101.5, your wound has increased redness, your wound has increased drainage and your wound pain has increased Follow-up/Referrals: Sher Bridges MD [Primary Care Provider] - Abel Henriquez PA-C [Physician Yard Switcher] - (07/01/24 @ 09:30) Diet: Regular Addtl Attending Provider Instructions: Activity and Therapy Recommendations: * If you are using [facility] then therapy will be provided at your home until they feel you have accomplished all of your goals. * If you are using [facility] then Physical Therapy will be provided until they feel you are ready to start Outpatient Physical Therapy. * If you are not using home therapy then Outpatient Physical Therapy should start about 3-5 days from your day of surgery. Therapy will last about 6-10 weeks * You were shown a series of exercises in the hospital. Do these exercises three times each day including the exercises you were shown in physical therapy. * Get up and walk several times each day.~ For the first four weeks, try not to stand or walk for more than one hour at a time. If you do stand or walk for more than one hour, you will not hurt anything, but your leg will likely swell.~~ * As you feel comfortable, you may change from the walker or crutches to a cane and~then to independent walking. Medications: * Narcotic You will likely be sent home from the hospital with a prescription for the narcotic pain medication that worked best throughout your stay. * Cefadroxil -take the antibiotic twice a day for 10 days to help prevent infection. * Aspirin Most patients will be required to take Aspirin 81mg twice a day for 6 weeks after surgery. This is obtained [id number] and a prescription is not necessary. * Other medications may be prescribed for specific circumstances. If you have any questions, please call the office at . * Resume previous home medications unless otherwise instructed TEDs/Elastic Stockings: The white elastic stockings help limit swelling and prevent blood clots from forming in your legs. The more you wear them, the more they work. Wear them for 2 weeks. Dressing Care: Leave the Silverlon dressing in place for 7 days. After 7 days you may remove the dressing. If the incision is not draining then you may leave the uzma open to air. If there is a little bit of drainage or if the uzma are getting stuck on your clothing then cover the incision with a dry dressing. The uzma will be removed at your 2 week follow-up appointment. Showering: You may shower with the Silverlon dressing in place. Do not let the shower spray hit the dressing directly. Pat the Silverlon dressing dry. If the dressing becomes wet underneath, then simply remove the dressing. Keep the incision dry until you are 7 days out from the day of surgery. After 7 days you may remove the Silverlon dressing and shower with the uzma exposed. Let soapy water run over the uzma and pat them dry. Do not scrub or soak the incision. Diet: You may resume your previous diet. Things To Watch For: * Drainage from the incision site that occurs more than one week after your surgery. * Increased redness at the incision site. * Fever above 102 degrees Fahrenheit. * Unusual chest pain or shortness of breath. * Call [facility] at with any of the above problems Follow-Up Visit: Follow-up with Dr. Vega's office 2-3 weeks after your day of surgery. We will remove your uzma and answer any questions. If you have any additional questions or concerns, Dr Vega is usually in the office at the same time and will be available An appointment was probably scheduled when you signed-up for surgery in the office. If you have any questions call Office Instructions: More detailed instructions as well as Frequently Asked Questions were provided in a folder by our office when you signed-up for surgery. Please review these instructions when you get home. If you have any further questions or concerns, please feel free to call the office at [phone] Pending Studies at Discharge: No Stand-Alone Forms: My [facility] [employer] Custom, Smoking Cessation Medications and DC Order Prescriptions: New aspirin 81 mg Tablet,Delayed Release (Dr/Ec) 81 mg PO BID 42 Days Qty: 0 0RF tramadol 50 mg tablet 50 mg PO Q6H PRN (Reason: pain) Qty: 30 0RF cefadroxil 500 mg capsule 500 mg PO BID 10 Days Qty: 20 0RF Continued lisinopril 5 mg tablet 5 mg PO QAM hydrochlorothiazide 25 mg tablet 25 mg PO QAM multivitamin Tablet 0.5 tab PO DAILY [id number] Tablet 3 tab PO DAILY Patient Comments: includes vitamin d also. 3 tablets per day totaling 750 mg of calcium citrate, magnesium 120 mg, zinc 15 mg and vitamin d 30 mcg. Tyrvaya 0.03 mg/spray [place], Metered, Non-Aerosol 0.03 mg INTRANASAL BID Rx Instructions: administer into each nostril; approximately 12 hours apart estradiol 0.01 % (0.1 mg/gram) Cream 1 appful VAGINAL 2XWK acetaminophen 650 mg Tablet Extended Release 650 mg PO Q12H Held ibuprofen 200 mg Tablet 200 mg PO Q6H PRN (Reason: Pain) Hold Instructions: Resume on 07/30/24. Admission Data Admit Date/Time: 06/16/24 08:30 Attending Provider: Darrell Vega Admit Provider: Darrell Vega Primary Care Provider: Sher Bridges Other Interventions: Discharge Summary Assessment (RN) Last Done: 06/18/24 10:31
== END 2024-06-18 11:14 | disposition home health service (06) ==
LOC: 3E 05:31 → ASU 05:31
DX: Z88.8 Allergy status to other drugs, medicaments and biological substances; M16.12 Unilateral primary osteoarthritis, left hip; Z79.899 Other long term (current) drug therapy; Z88.5 Allergy status to narcotic agent